=== PATIENT | female | born 1980 | race African-American/Black ===

== ENCOUNTER 2019-05-05 07:57 | Observation (INO) ==
[2019-05-05] MEDS ORDERED: NALOXONE 0.4 MG/ML VIAL ONE (08:18)
[2019-05-05] MEDS ORDERED: NALOXONE 0.4 MG/ML VIAL IV STA (08:22)
[2019-05-05 08:35] LABS: Apearance,Urine CLEAR (Clear); Bacteria,Urine Occasional /HPF (Few); Bilirubin,Urine Negative (Negative); Blood, Urine Small mg/dL (Negative); Glucose,Urine (UA) Negative (Negative); Ketones,Urine Negative (Negative); Mucus,Urine Occasional /LPF (Occasional); Nitrite,Urine Negative (Negative); Protein,Urine Negative; RBC,Urine <1 /HPF (0-4); Urine Color Yellow (Yellow); Urine Specific Gravity 1.016 (1.001-1.035); Urine Urobilinogen < 2.0 EU/DL (0.2-1.0); WBC,Urine 1 /HPF (0-6)
[2019-05-05 08:43] LABS: Basophils % 0.1 % (0.0-0.8); Hematocrit 41.9 VOL% (35.7-47.0); Hemoglobin 12.9 GM/DL (12.0-16.0); Immature Granulocytes % 0.4 %; Immature Granulocytes Absolute 0.03 #; Lymphocytes # 1.2 10*3/uL (1.4-4.0); Lymphocytes % 15.6 % (21.3-54.2); Mean Corpuscular HGB Conc 30.8 GM/DL (32-36); Mean Platelet Volume 10.1 FL (9.6-12.0); Monocytes % 2.1 % (1.7-12.7); Neutrophils % 81.8 % (38.7-73.9); Platelet Count 287 T/CUMM (130-400); Red Blood Count 5.05 MC/CUMM (3.8-5.5); Red Cell Distribution Width 16.8 % (9.3-17.3); White Blood Count 7.6 T/CUMM (4-12)
[2019-05-05 08:45] LABS: Barbiturates Screen,Urine Negative (Negative); Benzodiazepines Screen,Urine Negative (Negative); Cannabinoid Screen,Urine Positive (Negative); Opiate Screen,Urine Negative (Negative); Phencyclidine Screen,Urine Negative (Negative)
[2019-05-05 08:46] LABS: Blood Urea Nitrogen 15 MG/DL (7-18); Estimated Glom Filtration Rate 141 ML/MIN; Glucose 146 MG/DL (74-106)
[2019-05-05] MEDS ORDERED: SODIUM CHLORIDE 0.9% 1,000 ML IV STA (09:31)
[2019-05-05] MEDS ORDERED: ACETAMINOPHEN 325 MG TABLET PO PRN (11:06)
[2019-05-05] MEDS: SODIUM CHLORIDE 0.9% 1,000 ML IV SCH ×2 (11:40→19:44)
[2019-05-05] MEDS: FAMOTIDINE 20 MG/2 ML VIAL IV SCH ×2 (11:40→23:39)
[2019-05-05] MEDS: ONDANSETRON 4 MG/2 ML VIAL IV PRN ×2 (19:30→23:46)
[2019-05-05] MEDS ORDERED: ENOXAPARIN 40 MG/0.4 ML SYRINGE SUBCUT SCH (21:00)
[2019-05-06] MEDS: SODIUM CHLORIDE 0.9% 1,000 ML IV SCH (03:16)
[2019-05-06 04:52] LABS: Albumin 2.9 G/DL (3.4-5.0); Bilirubin,Total 0.4 MG/DL (0.2-1.0); Calcium 7.6 MG/DL (8.5-10.1); Osmolality,Calculated 280.1 MOS/KG (273-304); Total Protein 6.9 G/DL (6.4-8.3)
[2019-05-06 06:06] VITALS: BP 157/98
[2019-05-06] MEDS ORDERED: MAGNESIUM SULF RIDER 2 GM in PREMIX 1 EACH IV ONE (08:06)
[2019-05-06] MEDS ORDERED: LISINOPRIL 10 MG TABLET PO SCH (09:00)
[2019-05-06] MEDS: FAMOTIDINE 20 MG/2 ML VIAL IV SCH (11:30)
== END 2019-05-06 12:15 | disposition home or self-care (01) ==
LOC: EDBD → EDUNIT# → N.EDINP 07:57 → N.ED 07:57 → N.ICU 10:52
PROVIDERS: ADMIT Internal Medicine; ATTEND Internal Medicine